=== PATIENT | male | born 1950 | race Caucasian/White ===

== ENCOUNTER → 2020-07-09 | Outpatient (CLI) | payer MEDICARE, MEDICAID ==
--- NOTE | 2020-07-09 14:03 | RADIOLOGY REPORT (SQ) ---
EXAM DESCRIPTION: MRI RT UPPER JOINT WITHOUT IMAGES COMPLETED DATE/TIME: 07/09/2020 1:31 pm REASON FOR STUDY: M25.511 PAIN IN RIGHT SHOULDER M25.511 PAIN IN RIGHT SHOULDER COMPARISON: None. TECHNIQUE: Right shoulder images acquired and stored on PACS. Multiplanar imaging to include fat sen sitive sequences such as T1, water sensitive sequences such as FST2/STIR, cartilage sensitive sequenc es such as FSPD/gradient-echo sequences. LIMITATIONS: None. 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 Axial GRE acquisitio n reveals a dominant mass with multiple rounded satellite foci. This appears to be limited to the sc apula ; no abnormal findings are seen within the visualized clavicle or humerus. JOINT OR BURSAL EFFUSION: Scant fluid is seen within the subacromial/ subdeltoid bursa. GLENO-HUMERAL ARTICULATION: The scapular mass extends to the glenoid surface. Glenohumeral articulat ion is preserved. ACROMION AND AC JOINT: Moderate acromioclavicular arthropathy with capsular hypertrophy, marginal o steophytes, and acromioclavicular effusion. ROTATOR CUFF AND INTERVAL: Marked tendinosis of the supraspinatus with articular and bursal sided fra arnaldo. The subscapularis and infraspinatus musculature/ tendons are displaced by the scapular mass, b ut appear to be largely intact. The teres minor is unremarkable. Edema is seen throughout the infraspinatus myotendinous junction. LABRUM AND BICEPS LABRAL COMPLEX: Intact. No labral tear. Intra-articular long-head biceps tendon n ormal. Distal biceps in normal location in bicipital groove. REMAINDER OF LABRUM AND IGHL : Evaluation of the labrum is significantly limited by bone findings. PERIARTICULAR AND ADJACENT SOFT TISSUES: Osseous mass with extraosseous soft tissue component as deta iled above. OTHER: No other significant finding. IMPRESSION: Partially imaged expansile scapular mass with significant extraosseous soft tissue compo nent. If further imaging characterization is clinically indicated, consider contrast-enhanced MR crow ging of the scapula and/or CT of the scapula. TECHNICAL DOCUMENTATION: JOB ID: [id number] 2010 [employer]- All Rights Reserved Reading location - IP/workstation name: [email or web address]
== END ==
LOC: RAD 12:35 → EDSEX 13:15
PROVIDERS: ATTEND Physician Assistant
DX: M12.811 Other specific arthropathies, not elsewhere classified, right shoulder (principal); M25.511 Pain in right shoulder